=== PATIENT | male | born 1965 | race Caucasian/White ===

== ENCOUNTER 2021-02-16 01:49 | Day surgery (SDC) | payer BC, SELFPAY ==
[2021-02-04 13:14] VITALS: BMI 31.6
[2021-02-16 08:35] VITALS: BP 119/77; PULSE 85; RESP 16; TEMP 36.1; O2SAT 100; BMI 30.9
--- NOTE | 2021-02-16 08:45 | P.PNAN_ITS ---
Anes - Initial Pre Proc Eval Procedure: Operation Date: 02/16/21 09:30 Proposed Procedures p Screening Colonoscopy - Freddy Celeste MD Date/Time: 02/16/21 08:45 Surgeon: Freddy Celeste MD Pre Op Diagnosis: neoplasm screening Patient Data Age: 55 Gender: M Height: 1.78 m Weight: 97.8 kg Last Vital Signs Temp 36.1 C L 02/16/21 08:35 Pulse 85 02/16/21 08:35 Resp 16 02/16/21 08:35 BP 119/77 02/16/21 08:35 Pulse Ox 100 02/16/21 08:35 Allergies Allergy/AdvReac Type Severity Reaction Status Date / Time FRANCES Inhibitors Allergy Unknown Other Verified 02/16/21 08:34 Sulfa (Sulfonamide Allergy Unknown Other Verified 02/16/21 08:34 Antibiotics) CHLORPHENIRAMINE POLISTIREX Allergy UNKNOWN Uncoded 02/16/21 08:34 REACTION DEMECLOCYCLINE HCL Allergy UNKNOWN Uncoded 02/16/21 08:34 REACTION HYDROCODONE POLISTRX Allergy UNKNOWN Uncoded 02/16/21 08:34 REACTION Home Medications Medication Instructions Recorded Confirmed Type bimatoprost 0.01 % eye drops 1 drop EACH EYE DAILY 08/06/19 02/16/21 History blood sugar diagnostic #10 each 08/06/19 02/16/21 History blood sugar diagnostic #100 each 08/06/19 02/16/21 Rx blood sugar diagnostic #100 each 12/29/20 02/16/21 Rx atorvastatin 10 mg tablet 10 mg PO DAILY #90 tablet 01/27/21 02/16/21 Rx citalopram 40 mg tablet 40 mg PO DAILY #90 tablet 01/27/21 02/16/21 Rx telmisartan 40 mg tablet 40 mg PO DAILY #90 tablet 01/27/21 02/16/21 Rx albuterol sulfate [ProAir HFA] 1 inh INHALATION Q4H PRN 02/04/21 02/16/21 History aspirin [Adult Low Dose Aspirin] 81 mg PO DAILY 02/04/21 02/16/21 History fluticasone propionate [Flonase] 1 spray INTRANASAL DAILY 02/04/21 02/16/21 History metformin 2,000 mg PO DAILY 02/04/21 02/16/21 History Patient hx anesthesia problems: none Family hx anesthesia problems: none [facility] Past Medical History Medical History (Updated 08/06/19 @ 10:43 by Lily JayCAMRON) Digital mucinous cyst of finger of right hand Wellness examination Family History Family History Father Family history of coronary artery disease Social History Social History Smoking status: Never smoker Alcohol intake: current Alcohol use details: Monthly Living arrangements: with family Spiritual care concerns: No Anes - Eval Final PreProcedure Day of Procedure 02/16/21 08:45 Patient weight: obese Heart: regular rate and rhythm Lungs: clear to auscultation Airway: Mallampati scale class II Neurological: alert and oriented Last oral intake: >/= 8 hours ASA classification: III Emergent: no Anesthetic plan: proceed Anesthesia type and monitoring: general GIVS and standard monitoring Informed Consent: The patient's anesthetic plan and its attendant risks and benefits were discussed with the patient/family/POA. Questions were solicited and answers provided to the satisfaction of the patient/family/POA.
[2021-02-16] MEDS: LACTATED RINGERS 1,000 ML 30 ML IV CONT (08:55)
[2021-02-16 08:58] LABS: Glucose Point of Care 180 mg/dl (65-105)
--- NOTE | 2021-02-16 09:20 | PM.HPGS ---
History of Present Illness History of Present Illness Consent: Risks, benefits, and alternatives have been discussed and questions answered. Patient agrees to proceed with procedure. Chief complaint: neoplasm screening Narrative: Arnoldo Graf is a 55 year old male due to have another colonoscopy, last one 9 years ago. Review of Systems Constitutional: Constitutional: Denies headache(s) and Denies weakness Eyes: Eyes: Denies blurry vision ENT: Reports Normal hearing present, Denies headache(s) and Denies neck pain Cardiovascular: Cardiovascular: Denies chest pain and Denies dyspnea Respiratory: Respiratory: Denies dyspnea Gastrointestinal: Gastrointestinal: Reports no additional gastrointestinal complaints Genitourinary: Genitourinary: Denies dysuria Musculoskeletal: Musculoskeletal: Denies neck pain Integumentary/Breasts: Skin/Breast: Denies dry skin Neurologic: Reports Normal hearing present, Denies headache(s) and Denies weakness Psychiatric: Psychiatric: Denies anxiety Endocrine: Endocrine: Denies change in body appearance Hematologic/Lymphatic: Hematologic/Lymphatic: Denies easy bleeding Allergic/Immunologic: Allergic/Immunologic: Denies urticaria PMF Past Medical History Medical History (Updated 02/16/21 @ 09:21 by Freddy Celeste MD) Colon cancer screening Digital mucinous cyst of finger of right hand Wellness examination Family History Family History Father Family history of coronary artery disease Social History Social History Smoking status: Never smoker Alcohol intake: current Alcohol use details: Monthly Living arrangements: with family Spiritual care concerns: No Meds Home Medications and Allergies Home Medications Medication Instructions Recorded Confirmed Type bimatoprost 0.01 % eye drops 1 drop EACH EYE DAILY 08/06/19 02/16/21 History blood sugar diagnostic #10 each 08/06/19 02/16/21 History blood sugar diagnostic #100 each 08/06/19 02/16/21 Rx blood sugar diagnostic #100 each 12/29/20 02/16/21 Rx atorvastatin 10 mg tablet 10 mg PO DAILY #90 tablet 01/27/21 02/16/21 Rx citalopram 40 mg tablet 40 mg PO DAILY #90 tablet 01/27/21 02/16/21 Rx telmisartan 40 mg tablet 40 mg PO DAILY #90 tablet 01/27/21 02/16/21 Rx albuterol sulfate [ProAir HFA] 1 inh INHALATION Q4H PRN 02/04/21 02/16/21 History aspirin [Adult Low Dose Aspirin] 81 mg PO DAILY 02/04/21 02/16/21 History fluticasone propionate [Flonase] 1 spray INTRANASAL DAILY 02/04/21 02/16/21 History metformin 2,000 mg PO DAILY 02/04/21 02/16/21 History Allergies Allergy/AdvReac Type Severity Reaction Status Date / Time FRANCES Inhibitors Allergy Unknown Other Verified 02/16/21 08:34 Sulfa (Sulfonamide Allergy Unknown Other Verified 02/16/21 08:34 Antibiotics) CHLORPHENIRAMINE POLISTIREX Allergy UNKNOWN Uncoded 02/16/21 08:34 REACTION DEMECLOCYCLINE HCL Allergy UNKNOWN Uncoded 02/16/21 08:34 REACTION HYDROCODONE POLISTRX Allergy UNKNOWN Uncoded 02/16/21 08:34 REACTION Vital Signs Vital Signs - 24 hr 02/16/21 08:35 Temperature 97 F L Pulse Rate 85 Respiratory Rate 16 Blood Pressure 119/77 Pulse Oximetry 100 Exam Const: General: comfortable and no acute distress HENMT: General nose exam: Normal nares present Eyes: General: appearance normal, both eyes and all related structures Neck: Neck: no JVD Resp: Auscultation: clear to auscultation bilaterally Cardio: Rate: regular rate Rhythm: regular rhythm GI: Inspection: non-distended GI Palp: Yes Soft to palpation Skin: General skin exam: normal color Neuro: General: gait normal Speech: normal speech Extrem: General: normal to inspection Psych: Mental Status: mental status grossly normal Assessment and Plan Assessment and plan (1) Colon cancer screening: Code(s): Z12.11 - [place]
[2021-02-16 09:50] VITALS: BP 100/68; PULSE 74; RESP 16; O2SAT 100
[2021-02-16 10:00] VITALS: BP 104/73; PULSE 67; RESP 13; O2SAT 99
[2021-02-16 10:10] VITALS: BP 115/74; PULSE 67; RESP 14; O2SAT 99
== END 2021-02-16 10:13 | disposition home or self-care (01) ==
PROVIDERS: PCP Family Medicine; Visit Provider Internal Medicine Gastroenterology
PROC: 0DJD8ZZ Inspection of Lower Intestinal Tract, Via Natural or Artificial Opening Endoscopic (ICD-10-PCS; CPT 45378; principal; 2021-02-16 09:30)
DX: Z12.11 Encounter for screening for malignant neoplasm of colon (principal); K64.8 Other hemorrhoids; Z79.84 Long term (current) use of oral hypoglycemic drugs; Z79.82 Long term (current) use of aspirin; Z79.51 Long term (current) use of inhaled steroids; E66.9 Obesity, unspecified; Z68.30 Body mass index [BMI] 30.0-30.9, adult
CPT/HCPCS: 45378; 82948; J2704; J7120

== ENCOUNTER 2021-12-03 10:18 | Outpatient (CLI) | payer BC, SELFPAY ==
--- NOTE | 2021-12-03 11:00 | NEURO_ITS ---
Impression: # Complains of numbness and pain in hands. # Left Carpal Tunnel Syndrome and right evolving Carpal Tunnel Syndrome. # No ulnar neuropathy. # Normal needle/EMG exam. # Clinical correlation recommended. Nerve Conduction Studies Anti Sensory Summary Table Stim Site NR Peak (ms) P-T Amp (?V) Site1 Site2 Delta-P (ms) Dist (cm) [place] (m/s) Left Median Anti Sensory (2-3nd Digit) Wrist 3.2 60.4 Wrist 2-3nd Digit 3.2 14.0 44 Wrist 3.2 62.8 Wrist 2-3nd Digit 3.2 14.0 44 Right Median Anti Sensory (2-3nd Digit) Wrist 3.0 50.3 Wrist 2-3nd Digit 3.0 14.0 47 Wrist 2.9 47.0 Wrist 2-3nd Digit 3.0 14.0 47 Left Radial Anti Sensory (Base 1st Digit) Wrist 2.0 25.6 Wrist Base 1st Digit 2.0 0.0 Right Radial Anti Sensory (Base 1st Digit) Wrist 2.3 20.5 Wrist Base 1st Digit 2.3 0.0 Left Ulnar Anti Sensory (5th Digit) Wrist 2.5 35.1 Wrist 5th Digit 2.5 14.0 56 Right Ulnar Anti Sensory (5th Digit) Wrist 2.4 41.7 Wrist 5th Digit 2.4 14.0 58 Motor Summary Table Stim Site NR Onset (ms) O-P Amp (mV) Site1 Site2 Delta-0 (ms) Dist (cm) Clayton (m/s) Left Median Motor (Abd Poll Brev) Wrist 4.3 1.6 Elbow Wrist 5.2 28.0 54 Elbow 9.5 1.5 Right Median Motor (Abd Poll Brev) Wrist 3.4 2.1 Elbow Wrist 5.0 28.0 56 Elbow 8.4 2.1 Left Ulnar Motor (Abd Dig Minimi) Wrist 2.3 6.6 A Elbow Wrist 5.4 30.0 56 A Elbow 7.7 5.2 Right Ulnar Motor (Abd Dig Minimi) Wrist 2.4 7.1 A Elbow Wrist 5.3 30.0 57 A Elbow 7.7 5.7 F Wave Studies NR F-Lat (ms) L-R F-Lat (ms) Left Median (Mrkrs) (Abd Poll Brev) 29.84 0.70 Right Median (Mrkrs) (Abd Poll Brev) 29.14 0.70 Left Ulnar (Mrkrs) (Abd Dig Min) 28.42 0.18 Right Ulnar (Mrkrs) (Abd Dig Min) 28.60 0.18 EMG Side Muscle Nerve Root Ins Act Fibs Amp Dur Recrt Comment Right 1stDorInt Ulnar C8-T1 Nml Nml Nml Nml Nml Right Ext Indicis Radial (Post Int) C7-8 Nml Nml Nml Nml Nml Right Ext Digitorum Radial (Post Int) C7-8 Nml Nml Nml Nml Nml Right BrachioRad Radial C5-6 Nml Nml Nml Nml Nml Right PronatorTeres Median C6-7 Nml Nml Nml Nml Nml Right Abd Poll Brev Median C8-T1 Nml Nml Nml Nml Nml Left 1stDorInt Ulnar C8-T1 Nml Nml Nml Nml Nml Left Ext Indicis Radial (Post Int) C7-8 Nml Nml Nml Nml Nml Left Ext Digitorum Radial (Post Int) C7-8 Nml Nml Nml Nml Nml Left BrachioRad Radial C5-6 Nml Nml Nml Nml Nml Left PronatorTeres Median C6-7 Nml Nml Nml Nml Nml Left Abd Poll Brev Median C8-T1 Nml Nml Nml Nml Nml MTDD
== END 2021-12-03 10:19 | disposition home or self-care (01) ==
PROVIDERS: PCP Family Medicine; Visit Provider Nurse Practitioner Family
DX: G56.03 Carpal tunnel syndrome, bilateral upper limbs (principal); R20.0 Anesthesia of skin
CPT/HCPCS: 95886; 95911